=== PATIENT | female | born 2000 | race Caucasian/White ===

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

== ENCOUNTER 2022-06-11 03:29 | Emergency (ER) | payer OTHER ==
[~2022-06-11] VITALS: Ht 157.5 cm; Wt 61.4 kg
[2022-06-11] MEDS ORDERED: VENL150C43 PO (03:55)
[2022-06-11] MEDS ORDERED: VENL75CA47 (05:40)
[2022-06-11] MEDS ORDERED: HYDR-3363 (05:40)
[2022-06-11] MEDS ORDERED: LIDOCAINE W/EPINEPHRINE 1% 20ML VIAL SC ONE (07:00)
[2022-06-11] MEDS ORDERED: BOOSTRIX/ADACEL VACCINE (DIPHTH/PERTUSS/ACELL/TETANUS) 0.5ML SYR IM ONE (07:00)
[2022-06-11] MEDS ORDERED: ONDANSETRON 4MG ORAL DISINTEGRATING TAB PO ONE (07:05)
[2022-06-11] MEDS ORDERED: BACITRACIN OINTMENT 30GM TUBE TOP STA (07:38)
[2022-06-11 07:58] VITALS: BP 118/75
== END 2022-06-11 08:00 | disposition home or self-care (01) ==
LOC: M ED 03:29
DX: S71.111A Laceration without foreign body, right thigh, initial encounter (principal); W25.XXXA Contact with sharp glass, initial encounter; F41.9 Anxiety disorder, unspecified; F32.A Depression, unspecified; F10.10 Alcohol abuse, uncomplicated; F17.200 Nicotine dependence, unspecified, uncomplicated; Z79.899 Other long term (current) drug therapy

== ENCOUNTER → 2023-08-26 | Outpatient (CLI) | payer MEDICAID ==
[~2023-08-26] MED LIST: HYDR-3363; VENL150C43 PO; VENL75CA47
== END ==
LOC: M OUTALCOH 08:36
PROVIDERS: ATTEND Psychiatry & Neurology Psychiatry
DX: F10.10 Alcohol abuse, uncomplicated (principal)

== ENCOUNTER → 2023-09-16 | Outpatient (RCR) | payer MEDICAID | LOC: M OUTALCOH 09-03 15:57 | PROVIDERS: ATTEND Psychiatry & Neurology Psychiatry | DX: F10.20 Alcohol dependence, uncomplicated (principal); F12.20 Cannabis dependence, uncomplicated; F17.200 Nicotine dependence, unspecified, uncomplicated ==

== ENCOUNTER 2023-11-12 14:55 | Outpatient (RCR) | payer MEDICAID | END 2023-11-16 | LOC: M OUTALCOH 14:55 | PROVIDERS: ATTEND Psychiatry & Neurology Psychiatry | DX: F10.20 Alcohol dependence, uncomplicated (principal); F12.20 Cannabis dependence, uncomplicated; F17.200 Nicotine dependence, unspecified, uncomplicated ==

== ENCOUNTER 2024-01-10 14:00 | Outpatient (RCR) | payer MEDICAID | END 2024-01-16 | LOC: M OUTALCOH 14:00 | PROVIDERS: ATTEND Psychiatry & Neurology Psychiatry | DX: F10.20 Alcohol dependence, uncomplicated (principal); F12.20 Cannabis dependence, uncomplicated; F17.200 Nicotine dependence, unspecified, uncomplicated ==

== ENCOUNTER 2024-02-11 15:00 | Outpatient (RCR) | payer MEDICAID | END 2024-02-16 | LOC: M OUTALCOH 15:00 | PROVIDERS: ATTEND Psychiatry & Neurology Psychiatry | DX: F10.20 Alcohol dependence, uncomplicated (principal); F12.20 Cannabis dependence, uncomplicated; F17.200 Nicotine dependence, unspecified, uncomplicated ==

== ENCOUNTER 2024-03-06 14:03 | Outpatient (RCR) | payer MEDICAID | END 2024-03-18 | LOC: M OUTALCOH 14:03 | PROVIDERS: ATTEND Psychiatry & Neurology Psychiatry | DX: F10.20 Alcohol dependence, uncomplicated (principal); F12.20 Cannabis dependence, uncomplicated; F17.200 Nicotine dependence, unspecified, uncomplicated ==

== ENCOUNTER → 2024-05-23 | Outpatient (CLI) | payer OTHER | LOC: M CLY 13:40 | PROVIDERS: ATTEND Physician Assistant | DX: M94.0 Chondrocostal junction syndrome [Tietze] (principal) ==